=== PATIENT | male | born 1970 | race Caucasian/White ===

== ENCOUNTER → 2016-08-04 | Outpatient (CLI) | payer OTHER ==
[~2016-08-04] MED LIST: IOHEXOL 300 MG/ML 100ML VIAL. IV ONE; LEVO25TA55 PO
--- NOTE | 2016-08-04 11:16 | KCIC ---
PROCEDURE CT head without and with contrast. HISTORY Worsening tremors. TECHNIQUE Helical CT imaging of the brain is performed before and after 70 cc Omnipaque 300 IV contrast. PQRS: One or more the following individualized dose reduction techniques were utilized for the study: 1. Automated exposure control. 2. Adjustment of the mA and/or kV according to patient size. 3. Use of iterative reconstruction technique. COMPARISON None. FINDINGS There is no midline shift or mass effect. No extra-axial fluid collection or intraparenchymal hemorrhage. Burk-white matter differentiation is preserved. Ventricles and sulci are normal for patient age. No abnormal enhancement is seen in the brain. Mild mucosal thickening bilateral ethmoid and sphenoid sinuses. There is mild to moderate mucosal thickening right maxillary sinus. Maxillary sinuses incompletely imaged. Non pneumatization of the frontal sinuses. The mastoid air cells are clear. The globes and orbits appear intact. No acute calvarial abnormality. IMPRESSION No acute intracranial abnormality. Electronically signed by: Brandan Coates MD (August 04, 2016 11:15:01)
== END | disposition home or self-care (01) ==
LOC: KCIC CT 09:53
PROVIDERS: ATTEND Family Medicine
DX: R25.1 Tremor, unspecified (principal)
CPT/HCPCS: 70470; Q9967

== ENCOUNTER → 2020-12-27 | Day surgery (SDC) | payer OTHER ==
[~2020-12-27] VITALS: Ht 180.3 cm; Wt 124.0 kg
[~2020-12-27] MED LIST changes: +BUPIVACAINE MPF 0.25% 30 ML VIAL. IJ ONE; +BUPIVACAINE MPF 0.25% 30 ML VIAL. ONE; +CLINDAMYCIN 900MG PREMIX 50 ML IV PRN; +DEXAMETHASONE SOD PHOS 4 MG/ML VIAL ONE; +HYDROmorphone 2 MG/ML VIAL IVP PRN; -IOHEXOL 300 MG/ML 100ML VIAL. IV ONE; +IV RINGERS,LACTATED 1000ML 1,000 ML IV SCH; +LIDOCAINE 2% PF 5 ML VIAL. ONE; +MORPHINE SULFATE 2 MG/ML INJ. IVP PRN; +ONDANSETRON PF 4 MG/2 ML VIAL. ONE; +PROCHLORPERAZINE 10 MG/2 ML VIAL. IVP PRN; +PROPOFOL 10 MG/ML (20ML) VIAL. IV ONE; +SEVOFLURANE 31 TO 60 MINUTES. IH ONE; +TOPI50TA8 PO; +TRAM50TA PO; +fentaNYL PF VIAL 100 MCG/2 ML VIAL IVP PRN; +fentaNYL PF VIAL 100 MCG/2 ML VIAL ONE; +traMADol 50 MG TABLET PO ONE
[2020-12-27 07:59] VITALS: BP 141/80
--- NOTE | 2020-12-27 09:05 | PDOC4 ---
OPERATIVE NOTE Date: Date: Dec 27, 2020 Pre-Op Diagnosis: Carpal tunnel syndrome Post-Op Diagnosis: Same Procedure Performed: Carpal tunnel release left Surgeon: Bassam Anesthesia Type: General Blood Loss: 5 cc Specimans Obtained: None Findings: See dictation Complications: None CRISTINE KINCAID Jr., DO Dec 27, 2020 09:05
[2020-12-27 10:00] VITALS: BP 121/70
--- NOTE | 2020-12-27 11:25 | OP ---
DATE OF SURGERY: 12/27/2020 PREOPERATIVE DIAGNOSIS: Chronic carpal tunnel syndrome, left. POSTOPERATIVE DIAGNOSIS: Chronic carpal tunnel syndrome, left. PROCEDURE: Carpal tunnel release, left. SURGEON: Reji Banegas Jr, DO CAMP NURSE: Gabriele. ANESTHESIA: General. COMPLICATIONS: None. ESTIMATED BLOOD LOSS: 5 mL. Standard dictation for or first assist registered nurse. DESCRIPTION OF PROCEDURE: The patient was taken to the operative suite, given a general anesthetic. The left upper extremity was then prepped and draped in a sterile fashion. Incision was made through skin and subcutaneous tissues down through to identify the transverse palmar fascia. This was incised in line with the skin incision as well. The transverse carpal ligament was then identified. This was then subsequently released. The underlying nerve was noted to be completely intact and fully released at this point. This was then thoroughly irrigated and suctioned dry. Wound was reapproximated using 3-0 nylon. Sterile dressing was then applied. Tourniquet was deflated with good return of pulses and capillary refill. The patient was then taken from the operative bed to the postoperative bed, taken to the PACU in stable condition. CALDERON DR: Thom TID: [id number]
== END | disposition home or self-care (01) ==
LOC: SURG 07:29
PROVIDERS: ATTEND Orthopaedic Surgery
DX: G56.02 Carpal tunnel syndrome, left upper limb (principal); G47.30 Sleep apnea, unspecified; E03.9 Hypothyroidism, unspecified; Z87.891 Personal history of nicotine dependence; Z79.899 Other long term (current) drug therapy; Z98.890 Other specified postprocedural states; Z88.0 Allergy status to penicillin
CPT/HCPCS: 64721; A4930; A6402; J1100; J2405; J2704; J3010; J3490; A4657; A6452